=== PATIENT | male | born 1995 | race African-American/Black ===

== ENCOUNTER 2019-06-13 09:33 | Emergency (ER) | payer OTHER ==
[~2019-06-13] VITALS: Ht 182.9 cm; Wt 83.9 kg
[2019-06-13 09:41] VITALS: BP 119/70
--- NOTE | 2019-06-13 10:10 | RAD ---
EXAM: AP, oblique, lateral views left knee DATE: 06/13/2019 9:47 AM INDICATION: Left knee pain, lateral injury COMPARISON: No Prior FINDINGS/ IMPRESSION: 1. No evidence of acute fracture or dislocation. 2. Joint spaces are preserved without significant degenerative/proliferative change. 3. No joint effusion. Electronically signed by: Mario Caballero MD (06/13/2019 10:07 AM) [facility]
[2019-06-13] MEDS ORDERED: MELO7.5T29 PO (10:18)
--- NOTE | 2019-06-13 10:18 | PHYS DOC ---
Past History Past Medical History: No Pertinent History Past Surgical History: No Surgical History Smoking: Non-smoker Alcohol Use: None Drug Use: None Adult General Chief Complaint Chief Complaint: KNEE INJURY HPI HPI Patient is a 24-year-old male presents with left knee pain. He was doing an [employer] PT test, pulling a sled, this morning when he felt a pop. Immediate pain. He has been able to walk both at the time of accident/injury as well as now. Pain is mild to moderate. No numbness or tingling. No previous history of knee injury or surgery. Increased pain with movement. No feeling like the knee is giving way or buckling as he is walking. No radiation of the discomfort.[] Review of Systems Review of Systems Constitutional: Denies fever or chills [] Eyes: Denies change in visual acuity, redness, or eye pain [] HENT: Denies nasal congestion or sore throat [] Respiratory: Denies cough or shortness of breath [] Cardiovascular: No chest pain or palpitations[] GI: Denies abdominal pain, nausea, vomiting, bloody stools or diarrhea [] : Denies dysuria or hematuria [] Musculoskeletal: Denies back pain, see history of present illness[] Integument: Denies rash or skin lesions [] Neurologic: Denies headache, focal weakness or sensory changes [] Endocrine: Denies polyuria or polydipsia [] All other systems were reviewed and found to be within normal limits, except as documented in this note. Physical Exam Physical Exam Constitutional: Well developed, well nourished, no acute distress, non-toxic appearance. [] HENT: Normocephalic, atraumatic, bilateral external ears normal, oropharynx moist, no oral exudates, nose normal. [] Eyes: PERRLA, EOMI, conjunctiva normal, no discharge. [] Neck: Normal range of motion, no tenderness, supple, no stridor. [] Cardiovascular:Heart rate regular rhythm, no murmur [] Lungs & Thorax: Bilateral breath sounds clear to auscultation [] Abdomen: Not examined. [] Skin: Warm, dry, no erythema, no rash. [] Back: No tenderness, no CVA tenderness. [] Extremities: Left knee: No erythema or edema or effusion. Full active range of motion. Tenderness to palpation over the fibular head. No varus or valgus laxity. No joint line tenderness. Negative drawer and Cindy test. A joint above and a joined below were evaluated and were normal. Patient is distally neurovascularly intact. The other 3 extremities show: No tenderness, no cyanosis, no clubbing, ROM intact, no edema. [] Neurologic: Alert and oriented X 3, normal motor function, normal sensory function, no focal deficits noted. [] Psychologic: Affect normal, judgement normal, mood normal. [] Current Patient Data Vital Signs Vital Signs Date Time Temp Pulse Resp B/P (MAP) Pulse Ox O2 Delivery O2 Flow Rate FiO2 06/13/19 09:41 97.7 59 16 98 Room Air EKG EKG [] Radiology/Procedures Radiology/Procedures PROCEDURE: KNEE LEFT 3V EXAM: AP, oblique, lateral views left knee DATE: 06/13/2019 9:47 AM INDICATION: Left knee pain, lateral injury COMPARISON: No Prior FINDINGS/ IMPRESSION: 1. No evidence of acute fracture or dislocation. 2. Joint spaces are preserved without significant degenerative/proliferative change. 3. No joint effusion.[] Course & Med Decision Making Course & Med Decision Making Pertinent Labs and Imaging studies reviewed. (See chart for details) []ED course: Patient arrived, was placed in bed, and tolerated exam well. He deferred pain medicines at the time of exam. He was [facility] with any complications. After return the x-ray findings, these were discussed with the patient who voiced understanding. Liam wrap was applied. He was distally neurovascularly intact after Liam wrap application. He was discharged in improved condition. Medical decision making: There is no evidence of a fracture or dislocation. No evidence of significant ligamentous or tendinous injury. No evidence of meniscal injury. No evidence of neurologic or vascular compromise. Dragon Disclaimer Dragon Disclaimer This electronic medical record was generated, in whole or in part, using a voice recognition dictation system. Departure Departure: Impression: Primary Impression: Left knee sprain Disposition: 01 HOME, SELF-CARE Condition: IMPROVED Referrals: PCP,UNKNOWN (PCP) Patient Instructions: Lateral Collateral Knee Ligament Sprain with Phase I Re[facility] Additional Instructions: Follow-up with your regular doctor/sick call tomorrow. Rest, apply warm compresses for 15 minutes at a time, at least 4 times a day to the injured area. Return to the ER if worsening pain, weakness, or any other concerns. Scripts Meloxicam (MELOXICAM) 7.5 Mg Tablet 7.5 MG PO DAILY for PAIN, #20 TAB Prov: RANJIT YOON DO 06/13/19 Problem Qualifiers Primary Impression: Left knee sprain Encounter type: initial encounter Involved ligament of knee: lateral collateral ligament Qualified Codes: S83.422A - Sprain of lateral collateral ligament of left knee, initial encounter RANJIT YOON DO Jun 13, 2019 10:18
== END 2019-06-13 10:25 | disposition home or self-care (01) ==
LOC: ER 09:33
DX: S83.422A Sprain of lateral collateral ligament of left knee, initial encounter (principal); X50.9XXA Other and unspecified overexertion or strenuous movements or postures, initial encounter; Y93.A9 Activity, other involving cardiorespiratory exercise; Y92.89 Other specified places as the place of occurrence of the external cause; Y99.8 Other external cause status
CPT/HCPCS: 73562; 99284

== ENCOUNTER 2020-05-15 04:17 | Emergency (ER) | payer OTHER ==
[~2020-05-15] VITALS: Ht 182.9 cm; Wt 87.3 kg
[~2020-05-15 04:17] MED LIST: MELO7.5T29 PO
[2020-05-15 04:42] VITALS: BP 136/83
[2020-05-15] MEDS ORDERED: FAMOTIDINE 20 MG/2 ML VIAL IVP ONE (05:00)
[2020-05-15] MEDS ORDERED: IV NORMAL SALINE 1,000ML 1,000 ML IV ONE (05:00)
[2020-05-15] MEDS ORDERED: KETOROLAC 15 MG/ML VIAL. IVP ONE (05:00)
[2020-05-15] MEDS ORDERED: ACETAMINOPHEN 500 MG TABLET PO ONE (05:00)
[2020-05-15] MEDS ORDERED: ONDANSETRON PF 4 MG/2 ML VIAL. IVP ONE (05:00)
[2020-05-15] MEDS ORDERED: ONDA4TAB12 PO (05:03)
[2020-05-15] MEDS ORDERED: FAMO-63 PO (05:03)
[2020-05-15 05:05] LABS: BASO % 0 % (0-3); EOS % 0 % (0-3); HEMATOCRIT 48.2 % (39.0-53.0); LYMPH # 0.5 x10^3/uL (1.0-4.8); LYMPH % 4 % (24-48); MEAN CORPUSCULAR HEMOGLOBIN 29 pg (25-35); MEAN CORPUSCULAR HGB CONC 33 g/dL (31-37); MEAN CORPUSCULAR VOLUME 87 fL (79-100); MONO # 0.5 x10^3/uL (0.0-1.1); MONO % 4 % (0-9); NEUT # 12.3 x10^3uL (1.8-7.7); NEUT % 92 % (31-73); PLATELET COUNT 146 x10^3/uL (140-400); RED BLOOD COUNT 5.57 x10^6/uL (4.30-5.70); RED CELL DISTRIBUTION WIDTH 13.1 % (11.5-14.5); WHITE BLOOD COUNT 13.3 x10^3/uL (4.0-11.0)
[2020-05-15 05:06] LABS: CALCIUM 9.1 mg/dL (8.5-10.1); CREATININE 1.5 mg/dL (0.7-1.3); GFR 67.9; POTASSIUM 3.5 mmol/L (3.5-5.1)
--- NOTE | 2020-05-15 05:07 | PHYS DOC ---
Past History Past Medical History: No Pertinent History Past Surgical History: Tonsillectomy, Other Additional Past Surgical Histo: wisdom teeth Smoking: Non-smoker Alcohol Use: Occasionally Drug Use: None General Adult EDM: Chief Complaint: NAUSEA/VOMITING/DIARRHEA HPI: HPI: 25-year-old male presents with 2-day history of diffuse abdominal discomfort with associated nausea and vomiting as well as subjective fever/chills. Patient does report some body aches. Patient also complains of a headache. Reports took naproxen last night. Denies known exposure to COVID-19. Denies trauma. Review of Systems: Review of Systems: Constitutional: Reports subjective fever, chills, and malaise Eyes: Denies redness or eye pain HENT: Denies nasal congestion or sore throat Respiratory: Denies cough or shortness of breath Cardiovascular: Denies chest pain or palpitations GI: Reports abdominal pain, nausea, and vomiting : Denies dysuria or hematuria Musculoskeletal: Denies back pain or neck pain Integument: Denies rash or skin lesions Neurologic: Reports headache; denies focal weakness or sensory changes Complete systems were reviewed and found to be within normal limits, except as documented in this note. Current Medications: Current Meds: Current Medications Medications (Trade) Dose Ordered Sig/Tru Start Time Stop Time Status Last Admin Dose Admin Acetaminophen (Tylenol) 500 mg 1X ONCE 05/15/20 05:00 05/15/20 05:01 UNV Famotidine (Pepcid Vial) 20 mg 1X ONCE 05/15/20 05:00 05/15/20 05:01 UNV Ketorolac Tromethamine (Toradol 15mg Vial) 15 mg 1X ONCE 05/15/20 05:00 05/15/20 05:01 UNV Ondansetron HCl (Zofran) 4 mg 1X ONCE 05/15/20 05:00 05/15/20 05:01 UNV Sodium Chloride 1,000 ml @ 1,000 mls/hr 1X ONCE 05/15/20 05:00 05/15/20 05:59 UNV Allergies: Allergies: Allergies Coded Allergies Type Severity Reaction Last Updated Verified No Known Drug Allergies 05/15/20 No Physical Exam: PE: Constitutional: Well developed, well nourished, uncomfortable, non-toxic appearance HENT: Normocephalic, atraumatic Eyes: PERRL, EOMI, conjunctiva normal, no discharge Neck: Normal range of motion, supple, no meningeal signs Lungs & Thorax: No respiratory distress, equal chest rise and fall Abdomen: Soft, no tenderness, no guarding/rebound tenderness/distention Skin: Warm, dry, no erythema, no rash Back: No tenderness, no CVA tenderness Extremities: No tenderness, ROM intact, no edema Neurologic: Alert and oriented X 3, normal motor function, normal sensory function, no focal deficits noted Psychologic: Affect normal, judgment normal Current Patient Data: Vital Signs: Vital Signs Date Time Temp Pulse Resp B/P (MAP) Pulse Ox O2 Delivery O2 Flow Rate FiO2 05/15/20 04:42 100.3 90 16 136/83 (100) 97 Room Air EKG: EKG: [] Radiology/Procedures: Radiology/Procedures: [] Course & Med Decision Making: Course & Med Decision Making Pertinent Lab studies reviewed. (See chart for details) Patient presents with HPI and physical exam consistent for viral syndrome. Concern for COVID-19. COVID precautions in place upon arrival. Abdomen non- peritoneal. Labs obtained and posted to chart. IV fluid hydration provided. Symptomatic treatment also given. Fever addressed. Hypomagnesemia addressed. Patient stable for discharge with outpatient follow-up with PCP. Discussed findings and plan with patient, who acknowledges understanding and agreement. Anel Disclaimer: Anel Disclaimer: This electronic medical record was generated, in whole or in part, using a voice recognition dictation system. Departure Departure: Impression: Primary Impression: Suspected 2019 novel coronavirus infection Additional Impressions: Nausea & vomiting Qualified Codes: R11.2 - Nausea with vomiting, unspecified Fever Qualified Codes: R50.9 - Fever, unspecified Headache Qualified Codes: R51 - Headache Hypomagnesemia Disposition: HOME/RESIDENCE PRIOR TO ADM Condition: STABLE Referrals: PCP,NO (PCP) Patient Instructions: Fever, Adult, [id number], Headache, FAQs, Nausea and Vomiting, [id number], Viral Syndrome Additional Instructions: You have been tested for or diagnosed with COVID-19. It is an infection caused by a new type of coronavirus. COVID-19 will cause cold-like or mild flu symptoms in most. It can cause more severe symptoms like problems breathing in some. There is no treatment for COVID-19. The body will clear the infection over time. Self-care will help to ease discomfort. Steps to Take: Self-Care Rest as needed. Healthy habits may help you feel better. Steps include: Choose healthy foods including fruits and vegetables. Drink water throughout the day. Get plenty of sleep each night. If you smoke, try to quit. It may ease breathing. Avoid alcohol. Keep Others Healthy The virus can spread to others. Droplets are released every time you sneeze or cough. The droplets can get into the mouth, nose, or eyes of people near you and lead to infection. To lower the chances of spreading COVID-19 to others: Stay at home until your doctor has said it is safe to leave. If you tested positive this will mean staying isolated until both of the following are true: At least 7 days have passed since the start of illness. You are free of fever for at least 72 hours without the use of medicine. During this time: - Avoid public areas, events, or transportation. Do not return to work or school until your doctor has said it is safe to do so. - Call ahead if you need to go to a medical center. Let them know you may have COVID-19. It will help them guide you where to go. They may also ask you to wear a facemask when you come to the office. - If you call for emergency medical services, let them know you may have COVID- 19. While at home: - Try to avoid close contact with others. Stay about 6 feet away. - If possible, spend most of your time in a separate room from others. - Use a face mask if you will be in close contact with others such as sharing a room or vehicle. - Have someone wipe down common surfaces in the home. Use household truck rental manager every day on areas like doorknobs, counters, or sinks. - Cough or sneeze into a tissue. Throw the tissue away right after use. If a tissue is not available, cough or sneeze into your elbow. - Wash your hands often. Wash them after sneezing or coughing. Use soap and water and wash for at least 20 seconds. Alcohol based hand glass cleaner can be used if soap and maggie er is not available. - Do not prepare food for others. Avoid sharing personal items like forks, spoons, or toothbrushes. - Avoid close contact with pets while you are sick. There is no evidence of the virus passing to pets. This is a safety step until more is known about this virus. Isolation can be frustrating. Social interaction can help. Keep in touch with friends and family through phone and tech options. You can still interact with others in your home, just keep a safe distance of about 6 feet. Follow-up: Your doctors office will check in with you to see if there are any changes in your health. You may be asked to keep track of symptoms to share with them. They will also let you know when you are clear to be in public again. Problems to Look Out For: Contact your doctor if your recovery is not going as you expect. Get emergency care if you have problems such as: - Trouble breathing - Nonstop chest pain or pressure - Changes in awareness, confusion, or problems waking - Lips or face have bluish color - Worsening of symptoms If you think you have an emergency, call for emergency medical services right away. [facility] Scripts Famotidine (PEPCID) 20 Mg Tablet 1 TAB PO BID for Gastritis, #20 TAB Prov: SEBASTIÁN MAXWELL DO 05/15/20 Ondansetron (ONDANSETRON ODT) 4 Mg Tab.rapdis 1 TAB PO PRN Q6-8HRS PRN for NAUSEA, #16 TAB Prov: SEBASTIÁN MAXWELL DO 05/15/20 Justification of Admission: Justification of Admission: Justification of Admission Dx: N/A SEBASTIÁN MAXWELL DO May 15, 2020 05:07
[2020-05-15 05:11] LABS: ALBUMIN 4.1 g/dL (3.4-5.0); ALBUMIN/GLOBULIN RATIO 1.1 (1.0-1.7); MAGNESIUM 1.4 mg/dL (1.8-2.4); TOTAL BILIRUBIN 0.9 mg/dL (0.2-1.0)
[2020-05-15 05:40] LABS: BACTERIA,URINE 0 /HPF (0-FEW); BILIRUBIN,URINE NEG (NEG); CLARITY,URINE CLEAR; COLOR,URINE YELLOW; GLUCOSE,URINE NEG (NEG); NITRITE,URINE NEG (NEG); RBC,URINE 0 /HPF (0-2); SQUAMOUS EPITHELIAL CELL,UR OCC /LPF; WBC,URINE RARE /HPF (0-4)
[2020-05-15] MEDS ORDERED: MAGNESIUM CHLORIDE ER 64 MG TABLET.ER PO ONE ×2 (06:15→06:18)
--- NOTE | 2020-05-18 09:58 | NUR ---
IP: notified patient of COVID-19 test result.
== END 2020-05-15 06:25 | disposition home or self-care (01) ==
LOC: ER 04:17
DX: R11.2 Nausea with vomiting, unspecified (principal); E83.42 Hypomagnesemia; R50.9 Fever, unspecified; R51 Headache; R10.84 Generalized abdominal pain; Z20.828 Contact with and (suspected) exposure to other viral communicable diseases
CPT/HCPCS: 36415; 80053; 81001; 83690; 83735; 85025; 96361; 96374; 96375; 99284; J1885; J2405; J3490; J7030; U0003